=== PATIENT | female | born 1985 | race Caucasian/White ===

== ENCOUNTER 2017-01-08 04:55 | Emergency (ER) | payer MEDICAID ==
[2013-01-07 06:19] VITALS: BMI 32.9
== END 2017-01-08 05:12 | disposition home or self-care (01) ==
LOC: D.ER 04:55
DX: K02.9 Dental caries, unspecified (principal); K08.89 Other specified disorders of teeth and supporting structures

== ENCOUNTER 2017-04-24 22:22 | Emergency (ER) | payer MEDICAID ==
[2013-01-07 06:19] VITALS: BMI 32.9
== END 2017-04-25 00:40 | disposition home or self-care (01) ==
LOC: D.ER 22:22
DX: K04.7 Periapical abscess without sinus (principal); K02.9 Dental caries, unspecified

== ENCOUNTER 2018-07-09 21:56 | Emergency (ER) | payer MEDICAID ==
[~2018-07-09] VITALS: Ht 170.2 cm; Wt 100.0 kg
[2018-07-09 22:17] VITALS: Ht 170.2 cm; Wt 100.0 kg
[2018-07-09] MEDS ORDERED: AUGMENTIN 875-11 TAB PO (22:32)
[2018-07-09] MEDS ORDERED: VALTREX1000 MG PO (22:34)
[2018-07-09 23:15] VITALS: BP 111/54
== END 2018-07-09 23:15 | disposition home or self-care (01) ==
LOC: D.ER 21:56
DX: J20.9 Acute bronchitis, unspecified (principal); B00.89 Other herpesviral infection; H66.92 Otitis media, unspecified, left ear; R05 Cough; F17.200 Nicotine dependence, unspecified, uncomplicated

== ENCOUNTER 2018-08-07 15:45 | Emergency (ER) | payer MEDICAID ==
[~2018-08-07] VITALS: Ht 170.2 cm; Wt 104.5 kg
[~2018-08-07 15:45] MED LIST: AUGMENTIN 875-11 TAB PO; VALTREX1000 MG PO
[2018-08-07 15:51] VITALS: Ht 170.2 cm; Wt 104.5 kg
[2018-08-07] MEDS ORDERED: TESSALON PERLE100 MG PO (19:49)
[2018-08-07] MEDS ORDERED: ALBUTEROL SULF8.5 GM INH (19:49)
[2018-08-07] MEDS ORDERED: ZPAK PO (19:49)
[2018-08-07 20:30] VITALS: BP 132/78
== END 2018-08-07 20:30 | disposition home or self-care (01) ==
LOC: D.ER 15:45
DX: J40 Bronchitis, not specified as acute or chronic (principal); R09.89 Other specified symptoms and signs involving the circulatory and respiratory systems; F17.200 Nicotine dependence, unspecified, uncomplicated

== ENCOUNTER 2018-09-09 14:52 | Emergency (ER) | payer SELFPAY ==
[~2018-09-09] VITALS: Ht 170.2 cm; Wt 102.3 kg
[~2018-09-09 14:52] MED LIST changes: +ALBUTEROL SULF8.5 GM INH; +TESSALON PERLE100 MG PO; +ZPAK PO
[2018-09-09 15:07] VITALS: Ht 170.2 cm; Wt 102.3 kg
[2018-09-09] MEDS ORDERED: AMOXICILLIN500 M1 PO (19:59)
[2018-09-09] MEDS ORDERED: VOLTAREN75 MG PO (19:59)
[2018-09-09] MEDS ORDERED: ZOFRAN4 MG PO (20:00)
[2018-09-09 20:35] VITALS: BP 141/68
== END 2018-09-09 20:37 | disposition home or self-care (01) ==
LOC: D.ER 14:52
DX: H66.92 Otitis media, unspecified, left ear (principal); F17.200 Nicotine dependence, unspecified, uncomplicated; R11.0 Nausea

== ENCOUNTER 2019-03-30 18:36 | Emergency (ER) | payer SELFPAY ==
[~2019-03-30] VITALS: Ht 170.2 cm; Wt 87.0 kg
[~2019-03-30 18:36] MED LIST changes: +AMOXICILLIN500 M1 PO; +VOLTAREN75 MG PO; +ZOFRAN4 MG PO
[2019-03-30 18:39] VITALS: Ht 170.2 cm; Wt 87.0 kg
[2019-03-30 19:13] LABS: BASOPHILS 0.3 % (0-2); EOSINOPHILS 0.9 % (0-7); HEMATOCRIT 38.6 % (36.0-48.0); HEMOGLOBIN 12.7 g/dL (12-16); IMMATURE GRANULOCYTES 0.3 % (0-5); LYMPHOCYTES 26.1 % (15-50); MCH 25.8 pg (26.0-34.0); MCHC 32.9 g/dL (31.0-37.0); MCV 78.3 fL (80.0-100.0); MEAN PLATELET VOLUME 9.8 fL (7.4-10.4); MONOCYTES 4.8 % (2-11); NEUTROPHILS 67.6 % (40-80); RBC 4.93 10x6/uL (4.00-5.40); RDW 15.4 % (11.5-14.5); WBC 14.5 10x3/uL (4.8-10.8)
[2019-03-30 19:17] LABS: APPEARANCE HAZY (CLEAR); BILIRUBIN NEGATIVE (NEGATIVE); COLOR YELLOW (YELLOW); GLUCOSE NEGATIVE (NEGATIVE); KETONE NEGATIVE (NEGATIVE); NITRITE POSITIVE (NEGATIVE); PROTEIN NEGATIVE (NEGATIVE); UROBILINOGEN NORMAL (NORMAL)
[2019-03-30 19:18] LABS: BACTERIA MANY /hpf (NONE SEEN); EPITHELIAL CELLS 0-5 /hpf (0-5); MUCUS <1+ /lpf (NONE SEEN); RED CELLS - URINE 0-5 /hpf (0-5)
[2019-03-30 19:20] LABS: PLATELET COUNT 360 10x3/uL (130-400)
[2019-03-30 19:30] LABS: ALBUMIN 3.5 g/dL (3.4-5.0); ALKALINE PHOSPHATASE 73 U/L (46-116); ALT (SGPT) 32 U/L (10-68); BILIRUBIN - TOTAL 0.21 mg/dL (0.2-1.3); CALC OSMOLALITY 276 mosm/kg (275-300); CARBON DIOXIDE 29.8 mmol/L (21.0-32.0); CHLORIDE - SERUM 103 mmol/L (98-107); CREATININE - SERUM 0.8 mg/dL (0.6-1.3); GLUCOSE 90 mg/dL (74-106); POTASSIUM - SERUM 4.3 mmol/L (3.5-5.1); PROTEIN - SERUM 7.4 g/dL (6.4-8.2); SODIUM 140 mmol/L (136-145); UREA NITROGEN 7 mg/dL (7-18); eGFR NON AFRICAN AMERICAN 87 mL/min (90-120)
[2019-03-30 19:33] LABS: AMYLASE - SERUM 32 U/L (25-115); LIPASE 105 U/L (73-393)
[2019-03-30 19:39] LABS: TROPONIN-I < 0.017 ng/mL (0.000-0.060)
[2019-03-30 19:53] LABS: HCG SERUM NEGATIVE (NEGATIVE)
[2019-03-30] MEDS ORDERED: MACROBID100 MG PO (21:04)
[2019-03-30] MEDS ORDERED: VOLTAREN75 MG PO (21:04)
[2019-03-30] MEDS ORDERED: ZOFRAN ODT4 MG/UDTAB PO (21:04)
[2019-03-30 21:45] VITALS: BP 105/63
== END 2019-03-30 21:45 | disposition home or self-care (01) ==
LOC: D.ER 18:36
PROVIDERS: Family Medicine
DX: N39.0 Urinary tract infection, site not specified (principal); R10.9 Unspecified abdominal pain